=== PATIENT | male | born 1965 | race Caucasian/White ===

== ENCOUNTER 2024-04-15 15:11 | Emergency (ER) | payer MEDICARE, OTHER ==
[~2024-04-15] VITALS: Ht 172.7 cm; Wt 81.9 kg
[2024-04-15 15:29] VITALS: TEMP 98.4
[2024-04-15 15:49] LABS: BASOPHILS % (AUTO) 0.3 % (0.0-2.0); EOSINOPHILS % (AUTO) 0.4 % (1.0-6.0); HEMOGLOBIN 14.7 g/dL (13.5-17.5); LYMPHOCYTES # (AUTO) 0.9 K/uL (1.0-4.8); LYMPHOCYTES % (AUTO) 12.7 % (22.0-44.0); MEAN CORPUSCULAR HEMOGLOBIN 28.6 pg (26.0-34.0); MEAN CORPUSCULAR HGB CONC 34.1 G/dL (31.0-37.0); MEAN CORPUSCULAR VOLUME 84 fL (80-100); MONOCYTES # (AUTO) 0.3 K/uL (0.1-1.0); MONOCYTES % (AUTO) 4.4 % (2.0-9.0); NEUTROPHILS # (AUTO) 5.5 K/uL (1.8-7.7); NEUTROPHILS % (AUTO) 82.2 % (40.0-70.0); PLATELET COUNT (AUTO) 192 K/uL (150-450); RED BLOOD CELL COUNT(AUTO) 5.12 MIL/uL (4.50-5.90); RED CELL DISTRIBUTION WIDTH 13.6 % (11.5-14.5); WHITE BLOOD COUNT (AUTO) 6.7 K/uL (4.5-11.0)
[2024-04-15 16:00] LABS: ANION GAP 11 mmol/L (8-16); CALCIUM, TOTAL 8.8 mg/dL (8.8-10.5); CARBON DIOXIDE 25 mmol/L (22-29); CHLORIDE 95 mmol/L (98-107); GLOMERULAR FILTR. RATE CALC > 60 mL/min (>60); GLUCOSE,RANDOM 325 mg/dL (70-110); POTASSIUM 3.8 mmol/L (3.5-5.1); SODIUM SERUM 131 mmol/L (136-145); UREA NITROGEN, BLOOD 11 mg/dL (7-18)
[2024-04-15 16:08] LABS: TROPONIN I-HIGH SENSITIVITY 5 ng/L (<76)
[2024-04-15 16:13] LABS: LACTIC ACID 3.1 mmol/L (0.4-2.0)
[2024-04-15] MEDS: LevETIRAcetam 500 MG TABLET PO ONE (16:57)
[2024-04-15] MEDS: SODIUM CHLORIDE 0.9% 1,000 ML IV ONE (16:58)
[2024-04-15 17:30] VITALS: BP 155/90; PULSE 90; RESP 18
== END 2024-04-15 19:58 | disposition left against medical advice (07) ==
LOC: EMS 15:12
DX: G40.909 Epilepsy, unspecified, not intractable, without status epilepticus (principal); R32 Unspecified urinary incontinence
CPT/HCPCS: 99285; 96360; 70450; 71045; 80048; 83605; 84484; 85025; 36415; 93005; G0482; J7030